=== PATIENT | female | born 1995 | race Caucasian/White ===

== ENCOUNTER 2018-08-17 20:16 | Emergency (ER) | payer OTHER ==
[~2018-08-17] VITALS: Ht 157.5 cm; Wt 58.0 kg
[2018-08-17 20:19] VITALS: BP 117/83
== END 2018-08-17 22:06 | disposition home or self-care (01) ==
LOC: ED 22:00
DX: S83.412A Sprain of medial collateral ligament of left knee, initial encounter (principal); W18.30XA Fall on same level, unspecified, initial encounter; Y93.89 Activity, other specified; Y92.328 Other athletic field as the place of occurrence of the external cause; Y99.8 Other external cause status
CPT/HCPCS: 29505; 99283

== ENCOUNTER 2019-07-03 14:38 | Emergency (ER) | payer OTHER ==
[~2019-07-03] VITALS: Ht 157.5 cm; Wt 63.0 kg
--- NOTE | 2019-07-03 15:02 | NUR ---
Pt arrives to ed with c/o of being ill for a few days with no relief. Pt reports that she has been ill since April, pt reports multiple corses of abx but has had no improvement. Pt reports she has had spotting, chills, abd pain and congestion. She just does not know what is going on and is concerned. Pt is also tearful in room. Pt providing ua sample as well.
--- NOTE | 2019-07-03 15:27 | NUR ---
UA collected and sent to lab.
[2019-07-03 15:41] LABS: MICROSCOPIC NOT IND
[2019-07-03 15:44] LABS: CULTURE INDICATED? NO
[2019-07-03] MEDS ORDERED: DIPHENHYDRAMINE 50 MG/ML, 1ML ONE (16:28)
[2019-07-03] MEDS ORDERED: KETOROLAC 30 MG/1 ML ONE (16:28)
[2019-07-03] MEDS ORDERED: METOCLOPRAMIDE 5 MG/ML, 2ML ONE (16:28)
[2019-07-03] MEDS ORDERED: KETOROLAC 30 MG/1 ML IVPush ONE (16:30)
[2019-07-03] MEDS ORDERED: SODIUM CHLORIDE 0.9% 1,000ML IVBOLUS ONE (16:30)
[2019-07-03] MEDS ORDERED: DIPHENHYDRAMINE 50 MG/ML, 1ML IVPush ONE (16:30)
[2019-07-03] MEDS ORDERED: METOCLOPRAMIDE 5 MG/ML, 2ML IVPush ONE (16:30)
--- NOTE | 2019-07-03 16:36 | NUR ---
Pt medicated per emar.
[2019-07-03 16:46] LABS: BASOPHILS # (AUTO) 0.03 x10^3/uL (0-0.1); BASOPHILS % (AUTO) 0 % (0-1); EOSINOPHILS # (AUTO) 0.17 x10^3/uL (0-0.4); EOSINOPHILS % (AUTO) 2 % (1-7); LYMPHOCYTES # (AUTO) 1.83 x10^3/uL (1-3.4); LYMPHOCYTES % (AUTO) 24 % (22-44); MD NO; MEAN CORPUSCULAR HEMOGLOBIN 29.6 pg (27.0-34.8); MEAN CORPUSCULAR HGB CONC 33.9 g/dL (32.4-35.8); MEAN CORPUSCULAR VOLUME 87.2 fL (80-100); MEAN PLATELET VOLUME 8.5 fL (7.4-10.4); MONOCYTES # (AUTO) 0.41 x10^3/uL (0.2-0.8); MONOCYTES % (AUTO) 5 % (2-9); NEUTROPHILS # (AUTO) 5.35 x10^3/uL (1.8-6.8); NEUTROPHILS % (AUTO) 69 % (42-75); PLATELET COUNT 279 x10^3/uL (130-400); RED BLOOD COUNT 4.74 x10^6/uL (3.82-5.3); RED CELL DISTRIBUTION WIDTH 12.4 % (9.6-15.2)
[2019-07-03 16:50] LABS: ANION GAP 7 mmol/L (5-15); CALCIUM 9.6 mg/dL (8.5-10.1); CHLORIDE 104 mmol/L (98-107)
[2019-07-03 17:06] VITALS: BP 110/64
[2019-07-03 17:13] LABS: FREE T4 (FREE THYROXINE) 1.46 ng/dL (0.76-1.46)
[2019-07-03 17:47] LABS: HCG UR SG 1.009 (1.003-1.030)
--- NOTE | 2019-07-03 18:43 | NUR ---
Patient/Caregiver given discharge instructions and they have confirmed that they understand the instructions. Patient ambulatory with steady gait.
== END 2019-07-03 18:45 | disposition home or self-care (01) ==
LOC: ED 15:07
DX: R51 Headache (principal); R11.0 Nausea; R10.9 Unspecified abdominal pain; R00.0 Tachycardia, unspecified
CPT/HCPCS: 36415; 80048; 81003; 81025; 84439; 84443; 85025; 93005; 96374; 96375; 99284; J1200; J1885; J2765; J7030